=== PATIENT | male | born 1990 | race Caucasian/White ===

== ENCOUNTER 2020-09-24 15:11 | Emergency (ER) | payer BC ==
[2020-09-24] MEDS ORDERED: Sodium Chloride 0.9% 1,000 ML IV ONE (18:27)
[2020-09-24 19:00] LABS: BLOOD UREA NITROGEN,BUN 18 mg/dL (7.0-18.0); CARBON DIOXIDE,CO2 26.2 mmol/L (21.0-32.0); CHLORIDE,CL 104 mmol/L (98-107); GLUCOSE RANDOM 86 mg/dL (74-106); LIPASE 62 U/L (73-393); SODIUM,NA 139 mmol/L (136-148)
--- NOTE | 2020-09-24 19:22 | EDM.PDOC ---
ED HPI GENERAL MEDICAL PROBLEM - General Chief Complaint: Abdominal Pain Stated Complaint: SEVERE LOWER LEFT ABDOMINAL PAIN Time Seen by Provider: 09/24/20 18:16 Source of Information: Reports: Patient History Limitations: Reports: No Limitations - History of Present Illness INITIAL COMMENTS - FREE TEXT/NARRATIVE: HISTORY AND PHYSICAL: History of present illness: Patient is a 29-year-old male who presents emergency room today secondary to left lower quadrant abdominal pain that has been ongoing since yesterday. Patient states that initially the pain had resolved after a bowel movement yesterday but states that it has come back again last night and worsened throughout today. Patient states that he has pain with moving or pressing on the area. Patient states he tried having another bowel movement today to alleviate the discomfort but after bowel movement, it would not go away and worsened. Patient denies any abdominal surgeries and denies any health history. Patient denies any other resuscitative symptoms. Patient denies fever, chills, chest pain, shortness of breath, or cough. Denies headache, neck stiff ness, change in vision, syncope, or near syncope. Denies nausea, vomiting, diarrhea, constipation, or dysuria. Has not noted any blood in urine or stool. Patient has been eating and drinking appropriately. Review of systems: As per history of present illness and below otherwise all systems reviewed and negative. Past medical history: As per history of present illness and as reviewed below otherwise noncontributory. Surgical history: As per history of present illness and as reviewed below otherwise noncontributory. Social history: See social history for further information Family history: As per history of present illness and as reviewed below otherwise noncontributory. Physical exam: General: Patient is alert, oriented, and in no acute distress. Patient laying comfortably on exam table. Vitals stable and reviewed by me HEENT: Atraumatic, normocephalic, pupils equal and reactive bilaterally, negative for conjunctival pallor or scleral icterus, mucous membranes moist, TMs normal bilaterally, throat clear, neck supple, nontender, trachea midline. No drooling or trismus noted. No meningeal signs. No hot potato voice noted. Lungs: Clear to auscultation, breath sounds equal bilaterally, chest nontender. Heart: S1S2, regular rate and rhythm without overt murmur Abdomen: Soft, nondistended, moderate left lower quadrant tenderness without guarding, negative rebound, negative Shultz sign. Negative for masses or hepatosplenomegaly. Negative for costovertebral tenderness. Pelvis: Stable nontender. Genitourinary: Deferred. Rectal: Deferred. Skin: Intact, warm, dry. No lesions or rashes noted. Extremities: Atraumatic, negative for cords or calf pain. Neurovascular unremarkable. Neuro: Awake, alert, oriented. Cranial nerves II through XII unremarkable. Cerebellum unremarkable. Motor and sensory unremarkable throughout. Exam nonfocal. Notes: Patient is a 29-year-old otherwise healthy male who presents emergency room today secondary left lower quadrant abdominal pain x2 days. Upon arrival to the ED, patient is vitally stable and well-appearing on exam and lying comfortable on exam table. However, patient does have moderate left lower quadrant tenderness on exam. Will obtain basic lab work and abdominal pelvic CT scan with contrast. CBC mild derangements are unremarkable. CMP is unremarkable. Lipase within normal limits. Urinalysis is clear of infection. Abdominal pelvic CT scan with contrast shows nothing seen to explain the patient's left lower quadrant pain. No sign of diverticulosis or diverticulitis. No sign of any abnormality in the left urinary system. Normal CT of the abdomen with contrast. Normal CT of the pelvis with contrast Upon reevaluation of patient, he remains vitally stable throughout stay in the emergency room. Patient continues declined any pain medication and states that he will take ibuprofen and Tylenol at home. Strict return precautions thoroughly discussed with patient. Discussed importance for follow-up with a primary care provider. Voices understanding and is agreeable to plan of care. Denies any further questions or concerns at this time. Diagnostics: CBC, CMP, lipase, urinalysis, abdominal pelvic CT scan with contrast Therapeutics: I did offer dose of Toradol and morphine in the emergency room, however, patient declines. Prescription: None Impression: Left lower quadrant abdominal pain, unspecified Plan: 1. You can alternate ibuprofen and Tylenol as directed for pain and discomfort. 2. Follow-up with a primary care provider as discussed. Return to the ED as needed and as discussed. Definitive disposition and diagnosis as appropriate pending reevaluation and review of above. left lower abdomen Pain Score (Numeric/FACES): 8 - Related Data Allergies Allergy/AdvReac Type Severity Reaction Status Date / Time No Known Allergies Allergy Verified 09/24/20 15:48 Home Meds: Home Meds . 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 Neurological History: Reports: None Psychiatric History: Reports: None Endocrine/Metabolic History: Reports: None Hematologic History: Reports: None Immunologic History: Reports: None Oncologic (Cancer) History: Reports: None Dermatologic History: Reports: None - Infectious Disease History Infectious Disease History: Reports: None - Past Surgical History Head Surgeries/Procedures: Reports: None Social & Family History - Family History Family Medical History: No Pertinent Family History - Tobacco Use Tobacco Use Status *Q: Former Tobacco User Used Tobacco, but Quit: Yes Month/Year Tobacco Last Used: a month - Caffeine Use Caffeine Use: Reports: None - Recreational Drug Use Recreational Drug Use: Yes Recreational Drug Type: Reports: Marijuana/Hashish ED ROS GENERAL - Review of Systems Review Of Systems: Comprehensive ROS is negative, except as noted in HPI. ED EXAM, GENERAL - Physical Exam Exam: See Below (see dictation) Course - Vital Signs Last Recorded V/S: Last Vital Signs Temp 98 F 09/24/20 20:38 Pulse 58 L 09/24/20 20:38 Resp 18 09/24/20 20:38 BP 125/80 09/24/20 20:38 Pulse Ox 95 09/24/20 20:38 - Orders/Labs/Meds Labs: Laboratory Tests 09/24/20 09/24/20 09/24/20 Range/Units 17:00 18:34 18:34 WBC 9.43 (4.0-11.0) K/uL RBC 4.94 (4.50-5.90) M/uL Hgb 14.9 (13.0-17.0) g/dL Hct 42.3 (38.0-50.0) % MCV 85.6 (80.0-98.0) fL MCH 30.2 (27.0-32.0) pg MCHC 35.2 (31.0-37.0) g/dL RDW Std Deviation 37.5 (28.0-62.0) fl RDW Coeff of Cami 12 (11.0-15.0) % Plt Count 203 (150-400) K/uL MPV 9.20 (7.40-12.00) fL Neut % (Auto) 50.0 (48.0-80.0) % Lymph % (Auto) 36.6 (16.0-40.0) % Bland % (Auto) 8.2 (0.0-15.0) % Eos % (Auto) 4.6 (0.0-7.0) % Baso % (Auto) 0.6 (0.0-1.5) % Neut # (Auto) 4.7 (1.4-5.7) K/uL Lymph # (Auto) 3.5 H (0.6-2.4) K/uL Bland # (Auto) 0.8 (0.0-0.8) K/uL Eos # (Auto) 0.4 (0.0-0.7) K/uL Baso # (Auto) 0.1 (0.0-0.1) K/uL Nucleated RBC % 0.0 /100WBC Nucleated RBCs # 0 K/uL Sodium 139 (136-148) mmol/L Potassium 4.0 (3.5-5.1) mmol/L Chloride 104 (98-107) mmol/L Carbon Dioxide 26.2 (21.0-32.0) mmol/L BUN 18 (7.0-18.0) mg/dL Creatinine 1.1 (0.8-1.3) mg/dL Est Cr Clr Drug Dosing 110.97 mL/min Estimated GFR (MDRD) > 60.0 ml/min Glucose 86 (74-106) mg/dL Calcium 8.5 (8.5-10.1) mg/dL Total Bilirubin 0.5 (0.2-1.0) mg/dL AST 22 (15-37) IU/L ALT 20 (14-63) IU/L Alkaline Phosphatase 57 (46-116) U/L Total Protein 6.9 (6.4-8.2) g/dL Albumin 4.0 (3.4-5.0) g/dL Globulin 2.9 (2.6-4.0) g/dL Albumin/Globulin Ratio 1.4 (0.9-1.6) Lipase 62 L (73-393) U/L Urine Color YELLOW Urine Appearance CLEAR Urine pH 6.0 (5.0-8.0) Ur Specific [place] 1.025 (1.001-1.035) Urine Protein NEGATIVE (NEGATIVE) mg/dL Urine Glucose (UA) NEGATIVE (NEGATIVE) mg/dL Urine Ketones NEGATIVE (NEGATIVE) mg/dL Urine Occult Blood NEGATIVE (NEGATIVE) Urine Nitrite NEGATIVE (NEGATIVE) Urine Bilirubin NEGATIVE (NEGATIVE) Urine Urobilinogen 0.2 (<2.0) EU/dL Ur Leukocyte Esterase NEGATIVE (NEGATIVE) Meds: Medications Discontinued Medications Generic Name Dose Route Start Last Admin Trade Name Freq PRN Reason Stop Dose Admin Sodium Chloride 1,000 mls @ 999 mls/hr 09/24/20 18:27 09/24/20 18:35 Normal Saline IV 09/24/20 19:27 999 mls/hr BOLUS ONE Administration Iopamidol 100 ml 09/24/20 19:41 09/24/20 19:42 Iopamidol 755 Mg/Ml 500 Ml Multipack Bottle IVPUSH 09/24/20 19:42 100 ml ONETIME STA Administration Departure - Departure Time of Disposition: 20:25 Disposition: Home, Self-Care 01 Clinical Impression: Abdominal pain Qualifiers: Abdominal location: left lower quadrant Qualified Code(s): R10.32 - Left lower quadrant pain - Discharge Information Instructions: Abdominal Pain, Adult, [id number] Referrals: PCP,None [Primary Care Provider] - Forms: ED Department Discharge Additional Instructions: The following information is given to patients seen in the emergency department who are being discharged to home. This information is to outline your options for follow-up care. We provide all patients seen in our emergency department with a follow-up referral. The need for follow-up, as well as the timing and circumstances, are variable depending upon the specifics of your emergency department visit. If you don't have a primary care physician on staff, we will provide you with a referral. We always advise you to contact your personal physician following an emergency department visit to inform them of the circumstance of the visit and for follow-up with them and/or the need for any referrals to a consulting specialist. The emergency department will also refer you to a specialist when appropriate. This referral assures that you have the opportunity for follow-up care with a specialist. All of these measure are taken in an effort to provide you with optimal care, which includes your follow-up. Under all circumstances we always encourage you to contact your private physician who remains a resource for coordinating your care. When calling for follow-up care, please make the office aware that this follow-up is from your recent emergency room visit. If for any reason you are refused follow-up, please contact the [facility] Emergency Department at and asked to speak to the emergency department charge nurse. [facility] [address] [place] [id number] [facility] [address] [place] [id number] 1. You can alternate ibuprofen and Tylenol as directed for pain and discomfort. 2. Follow-up with a primary care provider as discussed. Return to the ED as needed and as discussed. Sepsis Event Note (ED) - Focused Exam Vital Signs: Vital Signs Temp Pulse Resp BP Pulse Ox 09/24/20 20:38 98 F 58 L 18 125/80 95 09/24/20 18:37 57 L 18 126/90 98 09/24/20 15:44 98.0 F 64 18 132/81 97
[2020-09-24] MEDS ORDERED: Iopamidol 755 MG/ML 500 ML Multipack Bottle IVPUSH STA (19:41)
--- NOTE | 2020-09-24 20:12 | CT ---
INDICATION: Left lower quadrant abdominal pain. COMPARISON: None available TECHNIQUE: CT examination of the abdomen and pelvis was performed with the uneventful intravenous administration of 100 cc of Isovue 370 while 2.5 mm thick axial sections were obtained from the lung bases through the pubic symphysis. Oral contrast was not administered. Please note that all CT scans at this facility use dose modulation, iterative reconstruction, and/or weight-based dosing when appropriate to reduce radiation dose to as low as reasonably achievable. FINDINGS: In the abdomen, the liver, spleen, pancreas, and adrenals are normal in appearance. The kidneys are normal in appearance. The gallbladder is normal in appearance. The abdominal aorta is normal in caliber with no sign of dilatation. There is no sign of retroperitoneal mass or adenopathy. The stomach, loops of small bowel, and colon in the abdomen are normal in appearance. In the pelvis, the appendix is normal in appearance with no sign of inflammatory process. The loops of small bowel and colon in the pelvis are normal in appearance. The prostate is normal in appearance. The urinary bladder is normal in appearance. There is no sign of pelvic or inguinal mass or adenopathy. There is no sign of free air or free fluid in the abdomen or pelvis. The lung bases are clear. The osseous structures are normal in appearance for the patient`s age. IMPRESSION: Nothing seen to explain the patient`s left lower quadrant pain. No sign of diverticulosis or diverticulitis. No sign of any abnormality of the left urinary system. Normal CT of the abdomen with contrast. Normal CT of the pelvis with contrast. Please note that all CT scans at this facility use dose modulation, iterative reconstruction, and/or weight-based dosing when appropriate to reduce radiation dose to as low as reasonably achievable. Dictated by Remy Allen MD @ 09/24/2020 8:11:[address] Remy Allen @ Sep 24 2020 8:11PM
[2020-09-24 20:38] VITALS: BP 125/80; PULSE 58
== END 2020-09-24 20:39 | disposition home or self-care (01) ==
LOC: MW.ED 15:11
DX: R10.32 Left lower quadrant pain (principal); Z87.891 Personal history of nicotine dependence
CPT/HCPCS: 36415; 74177; 80053; 81003; 83690; 85025; 99284; J7030; Q9967

== ENCOUNTER 2021-01-28 11:19 | Emergency (ER) | payer BC, OTHER ==
--- NOTE | 2021-01-28 11:24 | EDM.PDOC ---
ED HPI GENERAL MEDICAL PROBLEM - General Chief Complaint: Lower Extremity Injury/Pain Stated Complaint: ROLLED LEFT ANKLE Time Seen by Provider: 01/28/21 11:20 Source of Information: Reports: Patient History Limitations: Reports: No Limitations - History of Present Illness INITIAL COMMENTS - FREE TEXT/NARRATIVE: HISTORY AND PHYSICAL: History of present illness: Patient is a 30-year-old male who presents to the emergency room with complaints of left lateral ankle pain. He states he was getting out of his work truck when he stepped wrong, "rolling my ankle". He states it hurts with any type of weightbearing, movement or palpation of the ankle. Denies any numbness, tingling, saddle paresthesia. Denies hitting his head or having any loss of consciousness. No other extremity involvement. Patient denies any fever, chills, headache, change in vision, syncope or near syncope. Denies any chest pain, back pain, shortness of breath or cough. Denies any GI or symptoms. No recent travel or sick contacts. Review of systems: As per history of present illness and below otherwise all systems reviewed and negative. Past medical history: As per history of present illness and as reviewed below otherwise noncontributory. Surgical history: As per history of present illness and as reviewed below otherwise noncontributory. Social history: See social history for further information Family history: As per history of present illness and as reviewed below otherwise noncontributory. Physical exam: General: Well developed and well nourished. Alert and orientated x 3. Nontoxic in appearance and in no acute distress. Vital signs are stable and have been reviewed by me. Nursing notes were reviewed. HEENT: Atraumatic, normocephalic, pupils equal and reactive bilaterally, negative for conjunctival pallor or scleral icterus, mucous membranes moist, TMs normal bilaterally, throat clear, neck supple, nontender, trachea midline. No drooling or trismus noted. No meningeal signs. No hot potato voice noted. Lungs: Clear to auscultation bilaterally. No wheezes, rales, or rhonchi. Chest nontender. Normal work of breathing, no accessory muscles used. Heart: S1S2, regular rate and rhythm without overt murmur, gallops, or rubs. No JVD. No peripheral edema Abdomen: Soft, nondistended, nontender. Normoactive bowel sounds. Negative for masses or costovertebral tenderness. Skin: Soft tissue swelling noted to the left lateral ankle. Remaining skin is intact, warm, dry. No lesions or rashes noted. Hematologic: No petechiae or purpra. Mucosa appropriate color and normal nail bed color and refill. Extremities: Pain with soft tissue swelling of the left lateral ankle. He moves all extremities per self without difficulty or deficits, negative for cords or calf pain. Strong pedal and pretibial pulses. Cap refill less than 2 seconds. Neurovascular unremarkable. Neuro: Awake, alert, oriented. Cranial nerves II through XII unremarkable. Cerebellum unremarkable. Motor and sensory unremarkable throughout. Exam nonfocal. Psychiatric: Mood and affect are appropriate. Normal thought process. Answering questions appropriately. Please note that the patient was seen and evaluated during the 2019 SARS-CoV-2 novel coronavirus pandemic period. Community viral transmission is ongoing at time of this encounter and the emergency department is operating under pandemic response procedures. Medical Decision Making: Patient is a 30-year-old male who presents to the emergency room with complaints of left lateral ankle pain after rolling his foot. He is agreeable to an x-ray. X-ray shows no evidence of fracture, dislocation. Patient was fitted for CAM Walker boot and crutches to be nonweightbearing for healing. I have talked with the patient about today's findings, in addition to providing specific details for plan of care. Reassessment at the time of disposition demonstrates that the patient is in no acute distress. The patient is stable for discharge, counseling was provided and we discussed in great detail signs and symptoms that would prompt them to return to the Emergency Department. Medication, follow up and supportive care measures were reviewed and discussed. Voices understanding and is agreeable to plan of care. Denies any further questions or concerns at this time. Diagnostics: X-ray Therapeutics: CAM Walker boot, crutches Prescription: Tramadol (#15) Impression: Ankle sprain, left Plan: 1. You were evaluated today on an emergent basis. Your x-ray shows evidence of fracture. Rest, ice and elevate as able. Wear CAM walker boot and crutches to be nonweightbearing over the next 5-7 days. 2. You can alternate Tylenol and ibuprofen as needed for pain and fever management. 3. We encourage you to follow up with your orthopedics for re-evaluation and further care/management. 4. If your symptoms should worsen, new symptoms develop or any of the signs and symptoms we discussed should arise please return to the emergency room or call 911 (if needed). Definitive disposition and diagnosis as appropriate pending reevaluation and review of above. left ankle Pain Score (Numeric/FACES): 8 - Related Data Allergies Allergy/AdvReac Type Severity Reaction Status Date / Time No Known Allergies Allergy Verified 01/28/21 11:29 Home Meds: Home Meds . 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 Neurological History: Reports: None Psychiatric History: Reports: None Endocrine/Metabolic History: Reports: None Hematologic History: Reports: None Immunologic History: Reports: None Oncologic (Cancer) History: Reports: None Dermatologic History: Reports: None - Infectious Disease History Infectious Disease History: Reports: None - Past Surgical History Head Surgeries/Procedures: Reports: None Social & Family History - Family History Family Medical History: No Pertinent Family History - Caffeine Use Caffeine Use: Reports: None Review of Systems - Review of Systems Review Of Systems: Comprehensive ROS is negative, except as noted in HPI. ED EXAM, GENERAL - Physical Exam Exam: See Below (See dictation) Course - Vital Signs Last Recorded V/S: Last Vital Signs Temp 99.3 F 01/28/21 11:27 Pulse 81 01/28/21 11:27 Resp 18 01/28/21 11:27 BP 143/54 H 01/28/21 11:27 Pulse Ox 94 L 01/28/21 11:27 - Orders/Labs/Meds Orders: Active Orders 24 hr Category Date Time Status DME for Discharge [COMM] Stat Oth 01/28/21 11:48 Ordered Departure - Departure Time of Disposition: 11:52 Disposition: Home, Self-Care 01 Clinical Impression: Ankle sprain Qualifiers: Encounter type: initial encounter Involved ligament of ankle: unspecified ligament Laterality: left Qualified Code(s): S93.402A - Sprain of unspecified ligament of left ankle, initial encounter - Discharge Information Instructions: Ankle Sprain, [id number] Forms: ED Department Discharge Additional Instructions: The following information is given to patients seen in the emergency department who are being discharged to home. This information is to outline your options for follow-up care. We provide all patients seen in our emergency department with a follow-up referral. The need for follow-up, as well as the timing and circumstances, are variable depending upon the specifics of your emergency department visit. If you don't have a primary care physician on staff, we will provide you with a referral. We always advise you to contact your personal physician following an emergency department visit to inform them of the circumstance of the visit and for follow-up with them and/or the need for any referrals to a consulting specialist. The emergency department will also refer you to a specialist when appropriate. This referral assures that you have the opportunity for follow-up care with a specialist. All of these measure are taken in an effort to provide you with optimal care, which includes your follow-up. Under all circumstances we always encourage you to contact your private physician who remains a resource for coordinating your care. When calling for follow-up care, please make the office aware that this follow-up is from your recent emergency room visit. If for any reason you are refused follow-up, please contact the [facility] Emergency Department at and asked to speak to the emergency department charge nurse. [facility] [address] [place] [address] [id number] [address] [id number] Thank you for choosing the [facility] emergency department in [place] for your medical needs today. It was a pleasure caring for you. Today you were seen in the emergency department for ankle sprain. 1. You were evaluated today on an emergent basis. Your x-ray shows evidence of fracture. Rest, ice and elevate as able. Wear CAM walker boot and crutches to be nonweightbearing over the next 5-7 days. 2. You can alternate Tylenol and ibuprofen as needed for pain and fever management. 3. We encourage you to follow up with your orthopedics for re-evaluation and further care/management. 4. If your symptoms should worsen, new symptoms develop or any of the signs and symptoms we discussed should arise please return to the emergency room or call 911 (if needed). Sepsis Event Note (ED) - Focused Exam Vital Signs: Vital Signs Temp Pulse Resp BP Pulse Ox 01/28/21 11:27 99.3 F 81 18 143/54 H 94 L - My Orders Last 24 Hours: My Active Orders 01/28/21 11:48 DME for Discharge [COMM] Stat - Assessment/Plan Last 24 Hours: My Active Orders 01/28/21 11:48 DME for Discharge [COMM] Stat
[2021-01-28 11:46] VITALS: BP 143/54; PULSE 81
--- NOTE | 2021-01-28 11:49 | CR ---
Indication: Pain related to trauma Technique: Three images of the left ankle were acquired Comparison: None Findings: Normal bone mineral density. No fracture, dislocation or destructive process. Soft tissues radiographically normal. Impression: Normal plain film examination of the left ankle. Dictated by Gerhard Charles MD @ 01/28/2021 11:47:34 AM (Electronically Signed)
== END 2021-01-28 12:03 | disposition home or self-care (01) ==
LOC: MW.ED 11:19
DX: S93.402A Sprain of unspecified ligament of left ankle, initial encounter (principal); X50.1XXA Overexertion from prolonged static or awkward postures, initial encounter; Z72.0 Tobacco use
CPT/HCPCS: 73610-26-LT; 73610-LT; 99283